=== PATIENT | male | born 1990 | race Caucasian/White ===

== ENCOUNTER 2016-10-04 10:30 | Emergency (ER) ==
[2016-10-04 11:01] VITALS: BP 113/78
[2016-10-04] MEDS ORDERED: DECADRON IM ONE (11:20)
[2016-10-04] MEDS ORDERED: NORFLEX IM ONE (11:20)
[2016-10-04] MEDS ORDERED: TORADOL IM ONE (11:20)
--- NOTE | 2016-10-04 11:23 | PROVIDER DOCUMENTATION ---
HPI-Musculoskeletal Pain/Inj - GENERAL Chief Complaint: Back Pain Stated Complaint: BACK PAIN Time Seen by Provider: 10/04/16 11:04 Source: patient - HX OF PRESENT ILLNESS-MUSKULOSKELTAL Nature of Presenting Problem: This pt presents to ED with c/o of lower back pain that has been ongoing that he reports he has had for years. Denies any recent injury, loss of bladder/ bowel function or trouble walking. He states that today it just "seems a little worse than usual." no other issues or complaints. Pt is ambulating well. Quality of Pain: reports: aching Severity in ED: mild Onset/Duration: other (see hpi) Timing: still present, constant Modifying Factors: improves with: movement Any recent injury?: No Similar Symptoms Previously?: Yes Recently seen or treated by another doctor?: No Review of Systems - Adult - REVIEW OF SYSTEMS - ADULT Constitutional: reports: no symptoms reported. denies: chills, fever Eyes: reports: no symptoms reported. denies: discharge, dry eyes Ears, Nose, Mouth & Throat: reports: no symptoms reported. denies: ear discharge, ear pain Cardiovascular: reports: no symptoms reported. denies: chest pain, edema Respiratory: reports: no symptoms reported. denies: chronic cough, cough Gastrointestinal: reports: no symptoms reported. denies: abdominal pain, hematemesis Genitourinary: reports: no symptoms reported. denies: dysuria, discharge Musculoskeletal: reports: back pain. denies: bone pain, joint pain, joint swelling Integumentary: reports: no symptoms reported. denies: hives, hair loss Neurological: reports: no symptoms reported. denies: ataxia, dizziness/vertigo Psychiatric: reports: no symptoms reported. denies: anxiety, anti-depressant use Endocrine: reports: no symptoms reported Hematologic/Lymphatic: reports: no symptoms reported Allergic/Immunologic: reports: no symptoms reported All Other Systems: Reviewed and Negative Past History - Adult - PAST MEDICAL HISTORY-ADULT Review of Records: reports: Old Records Reviewed, Nursing Assessment Review, Medications Reviewed, Social history reviewed & non-contributory. Major Childhood Illnesses: reports: denies history Cardiovascular: reports: denies history Respiratory: reports: denies history Gastrointestinal: reports: denies history Obstetrical/Gynecological: reports: denies history Genitourinary: reports: denies history Musculoskeletal: reports: chronic pain Neurological: reports: denies history Endocrine/Immune: reports: denies history Other Conditions: reports: denies history - PRIOR SURGERIES/PROCEDURES Surgical/Procedure History: reports: hernia repair, orthopedic (extremity) ( right wrist) - IMMUNIZATION STATUS Childhood Immunizations: See Nurse Assessment Flu Vaccine: See Nurse Assessment - FAMILY HISTORY Family History: reviewed, not pertinent Physical Exam-Injury Related - Physical Exam-Injury Related Initial Vital Signs Reviewed: Yes General Appearance: appears well, alert, no apparent distress Eyes: PERRL/EOMI, pink conjunctivae Head, Ears, Nose, Mouth & Throat: normocephalic/atraumatic, moist mucous membranes, normal ENT inspection Neck: non-tender, full range of motion, supple, normal inspection Respiratory: chest non-tender, lungs clear, normal breath sounds, no pleuratic chest pain, no respiratory distress, no accessory muscle use Cardiovascular: normal peripheral pulses, regular rate, rhythm Abdominal Exam: normal bowel sounds, non tender, soft Back Exam: normal inspection, no CVA tenderness, no vertebral tenderness. negative: lordosis, muscle spasm, vertebral tenderness Extremity: normal range of motion, non-tender, normal gait, normal inspection Integumentary: normal color, warm/dry, blanching Neurologic: grossly normal, no motor/sensory deficits. negative: facial droop, focal weakness, motor weakness, sensory deficit Progress - PLAN OF CARE/RESULTS Progress/Plan/Lab Results: Orders Category Date Time Status Dexamethasone [Decadron] Med 10/04/16 11:20 Discontinued 10 mg IM NOW ONE Ketorolac [Toradol] Med 10/04/16 11:20 Discontinued 30 mg IM NOW ONE Orphenadrine [Norflex] Med 10/04/16 11:20 Discontinued 60 mg IM NOW ONE Vital Signs Temp Pulse Resp BP Pulse Ox 10/04/16 10:59 98.2 F 90 18 113/78 100 No Known Allergies Allergy (Verified 12/08/15 12:28) Departure - Departure Time of Disposition Order: 11:27 DIAGNOSIS: Low back pain with sciatica Qualifiers: Chronicity: acute Back pain laterality: right Sciatica laterality: sciatica of right side Qualified Code(s): M54.41 - Lumbago with sciatica, right side Disposition: HOME 01 Certified Medical Emergency: Urgent Condition: Good Additional Instructions: Take medication as prescribed. Follow up with an orthopedist. Return to the ER for any new or worsening symptoms. ED Follow Up Instructions: You have been treated by a care provider in the Emergency Department. These instructions are being provided to you so you can have an understanding of how to care for yourself upon discharge. Upon discharge from the Emergency Department, you are responsible for making arrangements for follow-up care by a physician of your choice. Take all prescribed medications as directed. Return to the Emergency Department immediately for any new or worsening symptoms. You may call the Physician Referral phone number at [phone] to obtain a list of Physicians who are taking new patients. Prescriptions: Cyclobenzaprine [Flexeril] 10 mg PO TID #20 tablet Meloxicam [Mobic] 7.5 mg PO DAILY PRN PRN #15 tablet PRN Reason: Pain Referrals: None,PCP [Primary Care Provider] - Amor Tinsley DO [STAFF PHYSICIAN] - Attestation - Physician/ JONATHAN Attestation Patient care was provided by Advanced Practice Provider:: Yes Advanced Practice Provider:: Elie Herbert Advanced Practice Provider documentation review:: The Mid-level provider documentation, treatment plan and medical decision making was reviewed by the physician who agrees with all treatment and medical decision making by the P.
== END 2016-10-04 11:53 | disposition home or self-care (01) ==
LOC: ED 10:30
DX: M54.41 Lumbago with sciatica, right side (principal); G89.29 Other chronic pain
CPT/HCPCS: 96372; J1885; J2360

== ENCOUNTER 2016-10-07 14:39 | Emergency (ER) ==
[2016-10-07] MEDS ORDERED: ULTRAM PO ONE (15:04)
--- NOTE | 2016-10-07 15:11 | PROVIDER DOCUMENTATION ---
HPI-Musculoskeletal Pain/Inj - GENERAL Source: patient - HX OF PRESENT ILLNESS-MUSKULOSKELTAL Quality of Pain: reports: aching Severity in ED: mild Onset/Duration: other (chronic) Timing: still present Modifying Factors: improves with: nothing Any recent injury?: No Locality of Occurance: Home Similar Symptoms Previously?: Yes Recently seen or treated by another doctor?: No - BACK & NECK PAIN/INJURY Back/Neck Pain Location: reports: C-spine, T-spine, lumbar spine Back/Neck Pain Radiation: denies: headache, shoulders, arm(s), Buttocks, Upper Legs, Lower Legs, Feet Context / Method of Injury: reports: other (chronic) Associated Symptoms: reports: denies symptoms History of Chronic Neck or Back Pain?: Yes <Shea Hairston - Last Filed: 10/07/16 15:06> <Latonya Cartwright - Last Filed: 10/07/16 15:24> - GENERAL Chief Complaint: Return/Recheck Stated Complaint: BACK PAIN Time Seen by Provider: 10/07/16 14:58 - HX OF PRESENT ILLNESS-MUSKULOSKELTAL Nature of Presenting Problem: Pt is 26 y/o M presents to the ED with back pain. Pt states it is chronic. Pt denies recently injury. Pt states going to [facility] Friday and was prescribed meds and Pt states meds give no relief. Pt states he would like Ultram. (Shea Hairston) Review of Systems - Adult - REVIEW OF SYSTEMS - ADULT Constitutional: reports: no symptoms reported Eyes: reports: no symptoms reported Ears, Nose, Mouth & Throat: reports: no symptoms reported Cardiovascular: reports: irregular heart rate (tachy). denies: chest pain, heart murmur Respiratory: reports: no symptoms reported Gastrointestinal: reports: no symptoms reported Genitourinary: reports: no symptoms reported Musculoskeletal: reports: back pain. denies: bone pain, joint pain, neck pain Integumentary: reports: no symptoms reported Neurological: reports: no symptoms reported Psychiatric: reports: no symptoms reported Endocrine: reports: no symptoms reported Hematologic/Lymphatic: reports: no symptoms reported Allergic/Immunologic: reports: no symptoms reported All Other Systems: Reviewed and Negative <Shea Hairston - Last Filed: 10/07/16 15:06> Past History - Adult - PAST MEDICAL HISTORY-ADULT Review of Records: reports: Nursing Assessment Review, Medications Reviewed, Social history reviewed & non-contributory. Major Childhood Illnesses: reports: denies history Cardiovascular: reports: denies history Respiratory: reports: denies history Gastrointestinal: reports: denies history Obstetrical/Gynecological: reports: denies history Genitourinary: reports: denies history Musculoskeletal: reports: chronic pain Neurological: reports: denies history Endocrine/Immune: reports: denies history Other Conditions: reports: denies history - PRIOR SURGERIES/PROCEDURES Surgical/Procedure History: reports: hernia repair, orthopedic (extremity) ( right wrist) - IMMUNIZATION STATUS Childhood Immunizations: See Nurse Assessment Flu Vaccine: See Nurse Assessment - FAMILY HISTORY Family History: reviewed, not pertinent - SOCIAL HISTORY Smoking: cigarettes, greater than 1 pack/day Provider spent 3-5 mins advising pt. on dangers of tobacco.: discussed smoking cessation Substance Use: alcohol, marijuana Alcohol Use Frequency: 3-4 times a week Number of drinks per typical drinking period:: 11-15 drinks Living Situation: family <Shea Hairston - Last Filed: 10/07/16 15:06> Physical Exam-Injury Related - Physical Exam-Injury Related Initial Vital Signs Reviewed: Yes General Appearance: appears well, alert, no apparent distress Eyes: PERRL/EOMI, pink conjunctivae, fundi clear, no AV nicking Head, Ears, Nose, Mouth & Throat: normocephalic/atraumatic, moist mucous membranes, normal ENT inspection, TMs normal, pharynx normal Neck: non-tender, full range of motion, supple, normal inspection Respiratory: chest non-tender, lungs clear, normal breath sounds, no pleuratic chest pain, no respiratory distress, no accessory muscle use Cardiovascular: normal peripheral pulses, no edema, no gallop, no JVD, no murmur , tachycardia Abdominal Exam: normal bowel sounds, non tender, soft, no organomegaly, no pulsatile mass Lymphatic: no adenopathy Back Exam: normal inspection, no CVA tenderness, no vertebral tenderness Extremity: normal range of motion, non-tender, normal gait, normal inspection, no pedal edema, no calf tenderness Integumentary: normal color, warm/dry Neurologic: grossly normal Psych/Mental Status: normal mood/affect, oriented x 3 <Shea Hairston - Last Filed: 10/07/16 15:06> Progress <Yovanny,Shea - Last Filed: 10/07/16 15:06> <Latonya Cartwright - Last Filed: 10/07/16 15:24> - PLAN OF CARE/RESULTS Progress/Plan/Lab Results: Orders Category Date Time Status Tramadol [Ultram] Med 10/07/16 15:04 Discontinued 50 mg PO NOW ONE Vital Signs - 24 hr 10/07/16 14:45 Temperature 98 F Pulse Rate 112 H Respiratory 18 Rate Blood Pressure 121/80 O2 Sat by Pulse 98 Oximetry (Shea Hairston) Discussed results and plan of care with patient. Patient agrees with plan and verbalizes understanding. Vital Signs Temp Pulse Resp BP Pulse Ox 10/07/16 14:45 98 F 112 H 18 121/80 98 No Known Allergies Allergy (Verified 10/04/16 11:44) Cyclobenzaprine [Flexeril] 10 mg PO TID #20 tablet 10/04/16 Meloxicam [Mobic] 7.5 mg PO DAILY PRN PRN #15 tablet 10/04/16 Orders Category Date Time Status Tramadol [Ultram] Med 10/07/16 15:04 Discontinued 50 mg PO NOW ONE (Latonya Cartwright) Departure <Shea Hairston - Last Filed: 10/07/16 15:06> - Departure Time of Disposition Order: 15:23 Certified Medical Emergency: Emergent <Latonya Cartwright - Last Filed: 10/07/16 15:24> - Departure DIAGNOSIS: Low back pain with sciatica Qualifiers: Chronicity: acute Back pain laterality: bilateral Sciatica laterality: bilateral sciatica Qualified Code(s): M54.42 - Lumbago with sciatica, left side ; M54.41 - Lumbago with sciatica, right side Disposition: HOME 01 Condition: Stable Additional Instructions: Follow up with primary care physician Follow up with orthopedic physician if needed Continue taking previously prescribed medications Return to ED for any concerns or worsening of symptoms ED Follow Up Instructions: You have been treated by a care provider in the Emergency Department. These instructions are being provided to you so you can have an understanding of how to care for yourself upon discharge. Upon discharge from the Emergency Department, you are responsible for making arrangements for follow-up care by a physician of your choice. Take all prescribed medications as directed. Return to the Emergency Department immediately for any new or worsening symptoms. You may call the Physician Referral phone number at [phone] to obtain a list of Physicians who are taking new patients. Referrals: None,PCP [Primary Care Provider] - Arvind Obrien MD [STAFF PHYSICIAN] - Attestation - Scribe Verification/Attestation Scribe:: Shea Hairston Acting as Scribe for:: Latonya Cartwright Scribe documention review:: This chart was documented by a scribe and accurately reflects the service the provider performed and the decisions made by the provider. <Shea Hairston - Last Filed: 10/07/16 15:06> - Physician/ JONATHAN Attestation Patient care was provided by Advanced Practice Provider:: Yes Advanced Practice Provider:: Latonya Cartwright Advanced Practice Provider documentation review:: The Mid-level provider documentation, treatment plan and medical decision making was reviewed by the physician who agrees with all treatment and medical decision making by the MLP. <Latonya Cartwright - Last Filed: 10/07/16 15:24> Physician Attestation
[2016-10-07 15:38] VITALS: BP 124/74
== END 2016-10-07 15:38 | disposition home or self-care (01) ==
LOC: P.ED 14:39
DX: M54.42 Lumbago with sciatica, left side (principal); M54.41 Lumbago with sciatica, right side; M54.6 Pain in thoracic spine; M54.2 Cervicalgia; R00.0 Tachycardia, unspecified; G89.29 Other chronic pain; F17.210 Nicotine dependence, cigarettes, uncomplicated; Z71.6 Tobacco abuse counseling